=== PATIENT | female | born 1960 | race Caucasian/White ===

== ENCOUNTER → 2017-07-05 | Outpatient (CLI) | payer BC ==
--- NOTE | 2017-07-05 14:06 | MAMMOGRAPHY REPORT ---
BILATERAL DIGITAL SCREENING MAMMOGRAM TOMOSYNTHESIS WITH CAD: 07/05/2017 CLINICAL HISTORY: Routine screening. TECHNIQUE: Breast tomosynthesis in addition to standard 2D mammography was performed. Current study was also evaluated with a Computer Aided Detection (CAD) system. COMPARISON: Comparison is made to exams dated: 07/11/2016 mammogram, 07/04/2016 mammogram, 07/01/2015 m ammogram, 06/30/2014 mammogram, 06/27/2013 mammogram, and 06/26/2012 mammogram - [facility] ter. BREAST COMPOSITION: The tissue of both breasts is heterogeneously dense, which may obscure small mas ses. FINDINGS: No suspicious masses, calcifications, or areas of architectural distortion are noted in ei ther breast. There has been no significant interval change compared to prior exams. Scattered bilater al benign-appearing calcifications are not significantly changed. IMPRESSION: ACR BI-RADS CATEGORY 2: BENIGN There is no mammographic evidence of malignancy. A 1 year screening mammogram is recommended. The pa tient will receive written notification of the results. Approximately 10% of breast cancers are not detected with mammography. A negative mammographic report should not delay biopsy if a clinically suggestive mass is present. Alexus Flor M.D. /:07/05/2017 12:04:31 Set Up Mold Technician: Marc VELASCO)(M), [facility] letter sent: Normal 1/2 BI-RADS Code: ACR BI-RADS Category 2: Benign
== END | disposition home or self-care (01) ==
LOC: C.MAMM 08:35
PROVIDERS: ATTEND Family Medicine
DX: Z12.31 Encounter for screening mammogram for malignant neoplasm of breast (principal)

== ENCOUNTER → 2018-07-08 | Outpatient (CLI) | payer BC ==
--- NOTE | 2018-07-09 06:57 | MAMMOGRAPHY REPORT ---
BILATERAL DIGITAL SCREENING MAMMOGRAM TOMOSYNTHESIS WITH CAD: 07/08/2018 CLINICAL HISTORY: Routine screening. Patient has no complaints. TECHNIQUE: The study was acquired using full field digital technology and interpreted from soft copy. Breast tomosynthesis in addition to standard 2D mammography was performed. Current study was also ev aluated with a Computer Aided Detection (CAD) system. COMPARISON: Comparison is made to exams dated: 07/05/2017 mammogram, 07/11/2016 mammogram, 07/04/2016 m ammogram, 07/01/2015 mammogram, 06/30/2014 mammogram, and 06/27/2013 mammogram - [facility] nter. BREAST COMPOSITION: The tissue of both breasts is heterogeneously dense, which may obscure small mass es. FINDINGS: There are stable groupings of punctate and round calcifications in both breasts. The gland ular pattern is similar to prior mammograms. No suspicious mass, architectural distortion or cluster of microcalcifications is seen. IMPRESSION: ACR BI-RADS CATEGORY 1: NEGATIVE There is no mammographic evidence of malignancy. A 1 year screening mammogram is recommended.( 019) The patient will receive written notification of the results. Some breast cancers are not detected with mammography. A negative mammographic report should not ayesha y biopsy if a clinically suggestive mass is present. Farzaneh Starks M.D. ay/:07/08/2018 14:44:20 Loan Inspector: RT Minor(Arvind)(M), [facility] letter sent: Normal 1/2 BI-RADS Code: ACR BI-RADS Category 1: Negative
== END | disposition home or self-care (01) ==
LOC: C.MAMM 10:47
PROVIDERS: ATTEND Family Medicine
DX: Z12.31 Encounter for screening mammogram for malignant neoplasm of breast (principal)

== ENCOUNTER 2021-06-02 05:57 | Observation (INO) ==
[2021-06-02 06:42] LABS: Basophils # (auto) 0.06 K/uL (0-0.2); Basophils % (auto) 0.8 %; Eosinophils # (auto) 0.18 K/uL (0-0.5); Eosinophils % (auto) 2.3 %; Hemoglobin 16.2 g/dL (12.0-16.0); Immature Granulocytes # (auto) 0.02 K/uL (0.00-0.02); Immature Granulocytes % (auto) 0.3 %; Lymphocytes # (auto) 2.71 K/uL (1.2-3.4); Lymphocytes % (auto) 33.9 %; Mean Corpuscular Hemoglobin 30.5 pg (25-34); Mean Corpuscular Hgb Conc 34.5 g/dL (32-36); Mean Corpuscular Volume 88.3 fL (80-100); Mean Platelet Volume 9.8 fL (7.4-10.4); Monocytes # (auto) 0.78 K/uL (0.11-0.59); Monocytes % (auto) 9.8 %; Neutrophils # (auto) 4.25 K/uL (1.4-6.5); Neutrophils % (auto) 52.9 %; Platelet Count 320 K/uL (130-400); RDW Coefficient of Variation 13.4 % (11.5-14.5); RDW Standard Deviation 43.1 fL (36.4-46.3); Red Blood Count 5.32 M/uL (4.2-5.4)
--- NOTE | 2021-06-02 07:00 | Emergency Department Note ---
History of Present Illness General Chief Complaint: Cardiac Assessment Stated Complaint: HEART FLUTTERING Time Seen by Provider: 06/02/21 06:37 History of Present Illness Provider Complaint: chest pain Time: 03:00 Duration: constant Onset: during rest and awoke with symptoms Pain Location: left chest Pain Radiation: LUE Severity: moderate Maximum Pain Intensity: 5 Current Pain Intensity: 5 Quality: + heaviness (pressure) Relieved By: + nothing Exacerbated By: + nothing Context: + recent travel (travel to [place] in April); no recent illness, no recent surgery, no trauma/injury or no history of DVT/PE Associated symptoms: no nausea, no vomiting, no diaphoresis, no dyspnea, no sense of impending doom, no syncope, no palpitations, no fever, no cough or no leg swelling Home Medications Medication Instructions Recorded Confirmed Type Claritin 10 mg PO DAILY 06/02/21 06/02/21 History lisinopril 10 mg tablet 10 mg PO DAILY 06/02/21 06/02/21 History Past Med/Surg History Medical History (Updated 06/02/21 @ 09:37 by Glynn Batres) HTN (hypertension) Surgical History (Updated 06/02/21 @ 09:06 by Sita Issa PA-C) Hx of cholecystectomy Family History (Updated 06/02/21 @ 09:06 by Sita Issa PA-C) Mother Myocardial infarction Other Cancer Diabetes Social History Smoking Status: Never smoker Preferred Language: Croatian Feels Safe at Home: Yes Review of Systems A total of 10 systems reviewed and were otherwise negative Physical Exam Vital Signs Vital Signs - 24 hr 06/02/21 06:03 06/02/21 06:11 06/02/21 06:13 Temperature 36.5 C 37.1 C Temperature Source Temporal Artery Scan Oral Pulse Rate 91 H 84 Pulse Rate [Apical] 82 Pulse Rate from SpO2 Sensor Pulse Rhythm [Apical] Regular Pulse Strength [Apical] Normal Respiratory Rate 18 16 Respiratory Effort / Characteristics Non-Labored Spontaneous Respiratory Depth Normal Normal Respiratory Pattern Regular Blood Pressure 170/103 H Blood Pressure [Right Arm] 163/100 H Blood Pressure Mean 125 Blood Pressure Mean [Right Arm] 121 Pulse Oximetry 99 98 Oxygen Delivery Method Room Air Room Air Room Air Sepsis Recent Fever Within 48 Hours No Sepsis New/Unexplained Change in Mental Status N/A Sepsis Action Taken by Nursing No Action Required 06/02/21 07:00 06/02/21 07:18 06/02/21 07:30 Temperature Temperature Source Pulse Rate 72 71 72 Pulse Rate [Apical] Pulse Rate from SpO2 Sensor 72 Pulse Rhythm [Apical] Pulse Strength [Apical] Respiratory Rate 16 16 16 Respiratory Effort / Characteristics Respiratory Depth Respiratory Pattern Blood Pressure 163/100 H 131/95 123/77 Blood Pressure [Right Arm] Blood Pressure Mean 121 107 92 Blood Pressure Mean [Right Arm] Pulse Oximetry 95 95 96 Oxygen Delivery Method Room Air Room Air Sepsis Recent Fever Within 48 Hours Sepsis New/Unexplained Change in Mental Status Sepsis Action Taken by Nursing 06/02/21 08:00 Temperature Temperature Source Pulse Rate 72 Pulse Rate [Apical] Pulse Rate from SpO2 Sensor Pulse Rhythm [Apical] Pulse Strength [Apical] Respiratory Rate 16 Respiratory Effort / Characteristics Respiratory Depth Respiratory Pattern Blood Pressure 167/85 H Blood Pressure [Right Arm] Blood Pressure Mean 112 Blood Pressure Mean [Right Arm] Pulse Oximetry 96 Oxygen Delivery Method Room Air Sepsis Recent Fever Within 48 Hours Sepsis New/Unexplained Change in Mental Status Sepsis Action Taken by Nursing Physical Exam GENERAL: She is oriented to person, place, and time. She appears well-developed and well-nourished. She does not appear distressed. HENT: Exam performed. -Head: Normocephalic and atraumatic. -Right Ear: External ear normal. No mastoid tenderness. -Left Ear: External ear normal. No mastoid tenderness. -Mouth/Throat: The oropharynx is clear and moist. No trismus in the jaw. No dental abscesses or uvula swelling. No oropharyngeal exudate or tonsillar abscesses. EYES: Conjunctivae and EOM are normal. Pupils are equal, round, and reactive to light. Right eye exhibits no discharge. Left eye exhibits no discharge. No scleral icterus. NECK: Normal range of motion. Neck supple. No JVD present. No spinous process tenderness present. No carotid bruit present. No rigidity. No tracheal deviation and normal range of motion present. No Brudzinski's sign and no Kernig's sign noted. CV: Normal rate, regular rhythm, normal heart sounds and intact distal pulses. There is no peripheral edema. Palpable radial pulses bue. PULM/CHEST: Effort normal and breath sounds normal. No respiratory distress. No stridor. She has no wheezes. She has no rales. -Chest Wall: She exhibits no tenderness. ABD: The abdomen is soft. Bowel sounds are normal. She has no distension. No mass is present. There is no tenderness. There is no rebound, no guarding, no Cuadra's sign and no tenderness at McBurney's point. Rovsig negative MUSC/SKEL: Normal range of motion. There is no peripheral edema, tenderness or deformity. LYMPH: No cervical adenopathy. NEURO: She is alert and oriented to person, place, and time. She has normal strength. No cranial nerve deficit or sensory deficit. Coordination and gait normal. GCS eye subscore is 4. GCS verbal subscore is 5. GCS motor subscore is 6. Cerebellar tests wnl. SKIN: Skin is warm and dry. She is not diaphoretic. PSYCH: She has a normal mood and affect. Behavior is normal. Judgment and thought content normal. Course Course 0637: The patient was evaluated in room A10. A complete history and physical exam was performed Cardiac monitoring: An order was placed for continuous cardiac monitoring. The monitor shows a rate of 80 with sinus rhythm 0817: Vital signs stable. Labs and imaging within normal limits. Patient was offered inpatient observation versus delta troponin and follow-up PCP if n egative, patient and family elected for inpatient observation given the strong family history of PR. Discussed the case with Dr. Kyle hospitalist who agreed to evaluate the patient. Administered Medications Discontinued Medications Aspirin (Aspirin Chew 324 Mg) 324 mg PO NOW STA Stop: 06/02/21 08:04 Last Admin: 06/02/21 08:16 Dose: 324 mg Documented by: [id number] Medical Decision Making Laboratory Data Result diagrams: 06/02/21 06:15 06/02/21 06:15 Labs: Lab Results 06/02/21 06/02/21 06/02/21 Range/Units 06:15 06:15 07:14 WBC 8.00 (4.8-10.8) K/uL RBC 5.32 (4.2-5.4) M/uL Hgb 16.2 H (12.0-16.0) g/dL Hct 47.0 (37-47) % MCV 88.3 (80-100) fL MCH 30.5 (25-34) pg MCHC 34.5 (32-36) g/dL RDW Std Deviation 43.1 (36.4-46.3) fL RDW Coeff of Shree 13.4 (11.5-14.5) % Plt Count 320 (130-400) K/uL MPV 9.8 (7.4-10.4) fL Immature Gran % (Auto) 0.3 % Neut % (Auto) 52.9 % Lymph % (Auto) 33.9 % Perry % (Auto) 9.8 % Eos % (Auto) 2.3 % Baso % (Auto) 0.8 % Neut # (Auto) 4.25 (1.4-6.5) K/uL Lymph # (Auto) 2.71 (1.2-3.4) K/uL Perry # (Auto) 0.78 H (0.11-0.59) K/uL Eos # (Auto) 0.18 (0-0.5) K/uL Baso # (Auto) 0.06 (0-0.2) K/uL Immature Gran # (Auto) 0.02 (0.00-0.02) K/uL PT 9.4 (9.0-12.0) Seconds INR 0.9 (0.9-1.1) APTT 28.0 (21.0-31.0) Seconds PTT Ratio 1.1 D-Dimer < 190 (0-500) ug/L FEU Sodium 139 (136-145) mmol/L Potassium 3.7 (3.5-5.1) mmol/L Chloride 108 H (98-107) mmol/L Carbon Dioxide 27 (21-32) mmol/L Anion Gap 5.0 (3-11) BUN 13 (7-18) mg/dl Creatinine 0.80 (0.6-1.2) mg/dl Est Cr Clr Drug Dosing 78.0 ml/min Est GFR ( Amer) 92.2 ml/min Est GFR (Non-Af Amer) 79.6 ml/min BUN/Creatinine Ratio 16.5 (10-20) Glucose 100 H (70-99) mg/dl Calcium 9.6 (8.5-10.1) mg/dl Magnesium 2.2 (1.8-2.4) mg/dl Troponin I < 0.015 (0-0.045) ng/ml TSH 8.690 H (0.300-4.500) uIu/ml Urine Color Urine Appearance (Clear) Urine pH (4.5-7.5) Ur Specific Parker (1.000-1.030) Urine Protein (Negative) Urine Glucose (UA) (Negative) Urine Ketones (Negative) Urine Blood (Negative) Urine Nitrite (Negative) Urine Bilirubin (Negative) Urine Urobilinogen (Negative) Ur Leukocyte Esterase (Negative) Urine WBC (Auto) (0-5) /hpf Urine RBC (Auto) (0-4) /hpf U Hyaline Cast (Auto) (0-5) /lpf U Epithel Cells (Auto) (0-5) /lpf Urine Bacteria (Auto) (Negative) COVID-19 Eval Order 06/02/21 06/02/21 Range/Units 07:18 08:15 WBC (4.8-10.8) K/uL RBC (4.2-5.4) M/uL Hgb (12.0-16.0) g/dL Hct (37-47) % MCV (80-100) fL MCH (25-34) pg MCHC (32-36) g/dL RDW Std Deviation (36.4-46.3) fL RDW Coeff of Shree (11.5-14.5) % Plt Count (130-400) K/uL MPV (7.4-10.4) fL Immature Gran % (Auto) % Neut % (Auto) % Lymph % (Auto) % Perry % (Auto) % Eos % (Auto) % Baso % (Auto) % Neut # (Auto) (1.4-6.5) K/uL Lymph # (Auto) (1.2-3.4) K/uL Perry # (Auto) (0.11-0.59) K/uL Eos # (Auto) (0-0.5) K/uL Baso # (Auto) (0-0.2) K/uL Immature Gran # (Auto) (0.00-0.02) K/uL PT (9.0-12.0) Seconds INR (0.9-1.1) APTT (21.0-31.0) Seconds PTT Ratio D-Dimer (0-500) ug/L FEU Sodium (136-145) mmol/L Potassium (3.5-5.1) mmol/L Chloride (98-107) mmol/L Carbon Dioxide (21-32) mmol/L Anion Gap (3-11) BUN (7-18) mg/dl Creatinine (0.6-1.2) mg/dl Est Cr Clr Drug Dosing ml/min Est GFR ( Amer) ml/min Est GFR (Non-Af Amer) ml/min BUN/Creatinine Ratio (10-20) Glucose (70-99) mg/dl Calcium (8.5-10.1) mg/dl Magnesium (1.8-2.4) mg/dl Troponin I (0-0.045) ng/ml TSH (0.300-4.500) uIu/ml Urine Color Yellow Urine Appearance Clear (Clear) Urine pH 5.0 (4.5-7.5) Ur Specific Parker 1.010 (1.000-1.030) Urine Protein Negative (Negative) Urine Glucose (UA) Negative (Negative) Urine Ketones Negative (Negative) Urine Blood Negative (Negative) Urine Nitrite Negative (Negative) Urine Bilirubin Negative (Negative) Urine Urobilinogen Negative (Negative) Ur Leukocyte Esterase Trace H (Negative) Urine WBC (Auto) 1-5 (0-5) /hpf Urine RBC (Auto) 0-4 (0-4) /hpf U Hyaline Cast (Auto) 0 (0-5) /lpf U Epithel Cells (Auto) 10-20 H (0-5) /lpf Urine Bacteria (Auto) Negative (Negative) COVID-19 Eval Order Covid19 at [facility] Imaging Data Chest x-ray: Radiologist's impression: Chest X-Ray 06/02/21 06:11 XR chest 1V portable CLINICAL HISTORY: Atypical chest pain. COMPARISON STUDY: No previous studies for comparison. FINDINGS: Lung volumes are normal. Lungs are clear. There is no pneumothorax or pleural effusion. Cardiac size is normal. Mediastinal contours are normal. There is no evidence for pulmonary edema. IMPRESSION: No acute cardiopulmonary findings. ACT 112: Negative or not required by law. Electronically signed by: Derik Ray M.D. 06/02/2021 7:21 AM ECG Data Indication: chest pain Rate (beats per minute): 81 Rhythm: normal sinus Findings: no ST depression, no ST elevation or no prolonged QT MDM Narrative Vital signs stable. Labs and imaging within normal limits. Patient was offered inpatient observation versus delta troponin and follow-up PCP if negative, patient and family elected for inpatient observation given the strong family history of PR. Discussed the case with Dr. Kyle hospitalist who agreed to evaluate the patient. Impression & Plan Chest pain Discharge Plan Visit Data Chief Complaint: Cardiac Assessment Stated Complaint: HEART FLUTTERING ED Provider: Glynn Batres Discharge Problem: Chest pain Patient Disposition: Being Evaluated by Hospitalist Forms Stand Alone Forms: [employer] Prescriptions Prescriptions: No Action lisinopril 10 mg tablet 10 mg PO DAILY RF: 0 Claritin 10 mg PO DAILY RF: 0 Referrals Referrals: PCP,NO [Primary Care Provider] - Discharge Problem: Chest pain Qualifiers: Chest pain type: unspecified Qualified Code(s): R07.9 - Chest pain, unspecified
[2021-06-02 07:03] LABS: BUN Creatinine Ratio 16.5 (10-20); Blood Urea Nitrogen 13 mg/dl (7-18); Calcium 9.6 mg/dl (8.5-10.1); Carbon Dioxide 27 mmol/L (21-32); Chloride 108 mmol/L (98-107); Est GFR (African American) 92.2 ml/min; Est GFR (Non-African American) 79.6 ml/min; Glucose 100 mg/dl (70-99); Magnesium 2.2 mg/dl (1.8-2.4); Potassium 3.7 mmol/L (3.5-5.1); Sodium 139 mmol/L (136-145)
[2021-06-02 07:14] LABS: Troponin I < 0.015 ng/ml (0-0.045)
--- NOTE | 2021-06-02 07:22 | XRay Report ---
XR chest 1V portable CLINICAL HISTORY: Atypical chest pain. COMPARISON STUDY: No previous studies for comparison. FINDINGS: Lung volumes are normal. Lungs are clear. There is no pneumothorax or pleural effusion. Car diac size is normal. Mediastinal contours are normal. There is no evidence for pulmonary edema. IMPRESSION: No acute cardiopulmonary findings. ACT 112: Negative or not required by law. Electronically signed by: Derik Ray M.D. 06/02/2021 7:21 AM
[2021-06-02 07:32] LABS: Appearance Urine Clear (Clear); Bacteria Urine Automated Negative (Negative); Bilirubin Urine Negative (Negative); Blood Urine Negative (Negative); Cast Urine Automated 0 /lpf (0-5); Color Urine Yellow; Glucose Urine UA Negative (Negative); Ketones Urine Negative (Negative); Leukocyte Esterase Urine Trace (Negative); Nitrite Urine Negative (Negative); Protein Urine Negative (Negative); RBC Urine Automated 0-4 /hpf (0-4); Urobilinogen Urine Negative (Negative)
[2021-06-02 07:46] LABS: D Dimer < 190 ug/L FEU (0-500); INR 0.9 (0.9-1.1); Partial Thromboplastin Ratio 1.1; Prothrombin Time 9.4 Seconds (9.0-12.0)
[2021-06-02] MEDS ORDERED: ASPIRIN CHEW 324 MG PO STA (08:03)
--- NOTE | 2021-06-02 08:48 | History & Physical Report ---
Date of Service June 02, 2021 Assessment & Plan (1) Chest pain: Plan: This is a 61-year-old female with PMH of hypertension who presents with chest pain since early this morning. R/o ACS; risk factors include HTN, + family history of CAD (mom with h/o AL at age 46) Initial troponin negative EKG with NSR CXR with no acute cardiopulmonary findings Trend serial cardiac enzymes Check 2D echo NTG PRN Repeat EKG in am Fasting lipids and a1c in AM Routine cardiology consult, NPO @ [place] in case of stress test in AM (2) HTN (hypertension): Plan: Normotensive. Continue lisinopril (3) Abnormal TSH: Plan: TSH elevated at 8.690. Repeat TSH and free T4 in AM DVT Ppx: SQ heparin Code status: FULL PCP: Ortiz Dispo: Observation telemetry Patient seen in collaboration with Dr. Hope. Please see addendum. History of Present Illness Chief Complaint: Chest pain Primary Care Provider: NO PCP This is a 61-year-old female with PMH of hypertension who presents with chest pain since early this morning. Was in normal state of health yesterday but woke up this morning at 0300 with left-sided "heat sensation" in left side of chest with radiation to left shoulder. Denies any radiation to jaw, associated shortness of breath, nausea or vomiting. Denies any previous history of chest pain or known coronary disease, diabetes or hyperlipidemia. Only medications are lisinopril and Claritin. Pain has improved since arrival to ED. Denies history of smoking. Endorses history of AL in mom at the age of 46. Denies any fever, chills, lightheadedness, visual changes, wheezing, shortness of breath, nausea, vomiting, abdominal pain, dysuria, diarrhea or constipation. Home Medications Medication Instructions Recorded Confirmed Type Claritin 10 mg PO DAILY 06/02/21 06/02/21 History lisinopril 10 mg tablet 10 mg PO DAILY 06/02/21 06/02/21 History Past Med/Surg History Medical History HTN (hypertension) Surgical History (Updated 06/02/21 @ 09:06 by Sita Issa PA-C) Hx of cholecystectomy Family History (Updated 06/02/21 @ 09:06 by Sita Issa PA-C) Mother Myocardial infarction Other Cancer Diabetes Social History Smoking Status: Never smoker Preferred Language: [place] Citizen Feels Safe at Home: Yes Review of Systems Review of Systems: At least ten systems reviewed and negative except as noted in the HPI. Physical Exam Physical Exam: General Appearance: WD/WN, vitals as above, NAD, sitting up in bed, pleasant, conversing easily Head: normocephalic, atraumatic Eyes: normal inspection, PERRL, conjunctivae normal, anicteric sclerae ENT: external ear and nose normal, oropharynx normal Neck: normal visual inspection, trachea midline, no thyromegaly Respiratory: normal respiratory effort, lungs clear to auscultation, no wheeze, rales, rhonchi. No accessory muscle use Cardiovascular: regular rate, rhythm, no murmur, normal peripheral pulses, no BLE edema. Vessels: no JVD Chest: normal inspection of chest, pain not reproducible Abdomen/GI: normal bowel sounds, soft, nontender, no hepatosplenomegaly Extremities/Musculoskeletal: no cyanosis or clubbing, extremities motor strength 5/5 Neurologic: PERRL, EOMI, accommodation nl, no face palsy, no dysarthria, CN's II-XI intact bilaterally and moves all extremities Psychiatric: A+Ox3, euthymic affect Skin: no rashes, normal color, warm/dry Results & Data Results & Data ([facility]) Vital Signs (Past 12 Hours) Vital Signs Temp Pulse Pulse Resp BP BP Pulse Ox 06/02/21 08:00 72 16 167/85 H 96 06/02/21 07:30 72 16 123/77 96 06/02/21 07:18 71 16 131/95 95 06/02/21 07:00 72 16 163/100 H 95 06/02/21 06:11 37.1 C 84 82 16 163/100 H 98 06/02/21 06:03 36.5 C 91 H 18 170/103 H 99 Laboratory Results Short CBC 06/02/21 Range/Units 06:15 WBC 8.00 (4.8-10.8) K/uL Hgb 16.2 H (12.0-16.0) g/dL Hct 47.0 (37-47) % Plt Count 320 (130-400) K/uL BMP 06/02/21 06:15 Sodium 139 Potassium 3.7 Chloride 108 H Carbon Dioxide 27 BUN 13 Creatinine 0.80 Glucose 100 H Calcium 9.6 Cardiac Enzymes 06/02/21 Range/Units 06:15 Troponin I < 0.015 (0-0.045) ng/ml Urine 06/02/21 Range/Units 07:18 Urine Color Yellow Urine Appearance Clear (Clear) Urine pH 5.0 (4.5-7.5) Ur Specific [place] 1.010 (1.000-1.030) Urine Protein Negative (Negative) Urine Glucose (UA) Negative (Negative) Diagnostic Findings Chest X-Ray 06/02/21 06:11 XR chest 1V portable CLINICAL HISTORY: Atypical chest pain. COMPARISON STUDY: No previous studies for comparison. FINDINGS: Lung volumes are normal. Lungs are clear. There is no pneumothorax or pleural effusion. Cardiac size is normal. Mediastinal contours are normal. There is no evidence for pulmonary edema. IMPRESSION: No acute cardiopulmonary findings. ACT 112: Negative or not required by law. Electronically signed by: Derik Ray M.D. 06/02/2021 7:21 AM ECG Rhythm: normal sinus Change: no significant change Code Status & VTE Plan VTE Prophylaxis Plan VTE Prophylaxis will be ordered: Yes Supervising Physician Co-Signing Physician Notes Patient is a 61-year-old female with history of hypertension and no other significant medical problems presents with history of sudden onset of left-sided chest pain radiating to left shoulder this morning. Currently while in ED, chest pain much improved. She denies any associated shortness of breath, nausea, vomiting, dizziness. Also denies any trauma. Please review HPI for complete details of presentation. Initial troponin negative. EKG showed no signs of acute ischemia. Echo pending. On exam patient is moderately built and nourished, no apparent distress, normocephalic atraumatic, EOMI, lungs are clear to auscultation, normal breath sounds, S1-S2, no murmur, no pedal edema, abdomen soft, nontender, normal bowel sounds, alert, awake, oriented, grossly no focal deficits. Patient is admitted for management of chest pain rule out ACS. Will trend cardiac enzymes, follow-up on echo. Will check lipid panel. Consulted cardiology for possible stress test. Noted abnormal TSH. Will repeat TSH, free T4 in the morning. Will monitor on telemetry. Keep her n.p.o. after midnight. I personally reviewed the record. Patient is interviewed and examined at bedside. Patient's care is coordinated with Sita Issa PA-C. Please refer to the documentation above for details of patient's presentation and for discussion of other issues. (1) Chest pain Chest pain type: unspecified Qualified Code(s): R07.9 - Chest pain, unspecified
[2021-06-02] MEDS ORDERED: ONDANSETRON INJ 2 MG/ML 2 ML VIAL IV PRN (16:32)
[2021-06-02] MEDS ORDERED: POLYETHYLENE (MIRALAX) 17 GM PACK PO PRN (16:32)
[2021-06-02] MEDS ORDERED: NITROGLYCERIN SL 0.4 MG/TAB TAB SL PRN (16:32)
[2021-06-02] MEDS ORDERED: ACETAMINOPHEN 325 MG TAB PO PRN (16:32)
--- NOTE | 2021-06-02 16:46 | Electrocardiogram Report ---
Test Reason : Blood Pressure : / mmHG Vent. Rate : 081 BPM Atrial Rate : 081 BPM P-R Int : 142 ms QRS Dur : 080 ms QT Int : 372 ms P-R-T Axes : 056 012 056 degrees QTc Int : 432 ms Normal sinus rhythm Normal ECG No previous ECGs available Confirmed by Tariq Anderson ([id number]) on 06/02/2021 4:46:25 PM Referred By: REFERRED SELF Confirmed By:Cody Anderson
[2021-06-02] MEDS: ASPIRIN 81 MG ECTAB PO SCH (17:31)
[2021-06-02] MEDS: lisinopril 10 MG TAB PO SCH (17:31)
[2021-06-02] MEDS: LORATADINE 10 MG TAB PO SCH (17:31)
[2021-06-02] MEDS: HEPARIN SOD 5,000 UNIT/0.5 ML VIAL SQ SCH ×2 (17:32→21:08)
[2021-06-02] MEDS ORDERED: NSS + 20MEQ KCL 20 MEQ/1,000 ML BAG IV ONE (21:00)
[2021-06-03] MEDS: HEPARIN SOD 5,000 UNIT/0.5 ML VIAL SQ SCH (06:06)
[2021-06-03 06:52] LABS: Hematocrit (blood only) 43.5 % (37-47); Hemoglobin 14.3 g/dL (12.0-16.0); Mean Corpuscular Hemoglobin 29.9 pg (25-34); Mean Corpuscular Hgb Conc 32.9 g/dL (32-36); Mean Platelet Volume 9.2 fL (7.4-10.4); Platelet Count 309 K/uL (130-400); RDW Coefficient of Variation 13.6 % (11.5-14.5); RDW Standard Deviation 45.4 fL (36.4-46.3); Red Blood Count 4.78 M/uL (4.2-5.4); White Blood Count 6.65 K/uL (4.8-10.8)
[2021-06-03 07:34] LABS: BUN Creatinine Ratio 22.3 (10-20); Calcium 8.7 mg/dl (8.5-10.1); Creatinine Clr Calc Pharmacy 87.6 ml/min; Est GFR (African American) 106.5 ml/min; Est GFR (Non-African American) 91.9 ml/min; Magnesium 2.4 mg/dl (1.8-2.4); Potassium 4.4 mmol/L (3.5-5.1)
[2021-06-03 07:52] LABS: T4 Free Thyroxine 0.99 ng/dl (0.8-1.6); Thyroid Stimulating Hormone 4.73 uIu/ml (0.300-4.500)
[2021-06-03] MEDS: ASPIRIN 81 MG ECTAB PO SCH (09:40)
[2021-06-03] MEDS: LORATADINE 10 MG TAB PO SCH (09:41)
[2021-06-03] MEDS: lisinopril 10 MG TAB PO SCH (09:41)
--- NOTE | 2021-06-03 10:07 | Cardiology Consultation ---
Date of Consultation June 03, 2021 Assessment & Plan (1) Chest pain: (2) HTN (hypertension): 61-year-old female with hypertension, family history of CAD in her mother as well as maternal grandmother. Admitted with atypical chest discomfort. EKGs are without acute change. Troponon negative x 3. Resting echocardiography demonstrates normal systolic function without regional wall motion abnormality. Review of telemetry reveals sinus in the 60's and 70's with occasional premature atrial contractions; no significant arrhythmias observed. Proceed with stress echocardiography. Supervising Physician Co-Signing Physician Notes I have seen and examined the patient. I have reviewed the medical record and discussed the case with Mr. Morelos. The patient had a negative exercise stress echocardiogram this morning. I believe that she may be discharged to outpatient follow-up with her primary care physician. History of Present Illness Reason for Consultation: Chest pain Requesting Physician: Herminia Attending Physician: Herminia History of Present Illness Mrs. Debbie Salinas is a very pleasant 61-year-old female who was admitted to [facility] through the emergency room on , June 02, 2021, evaluation of chest discomfort. The patient notes awakening around 3 AM with pressure in the left upper chest and left shoulder burning after falling asleep intermittently on the couch. She notes a history of a pinched nerve though symptoms were totally different. After a few hours of waxing and waning discomfort she presented to the emergency room with the pain noted to have improved prior to evaluation in the ER. EKG was without acute change. Troponin negative on presentation as well as serially. Chest x-ray showed no acute process. Resting echocardiography without wall motion abnormality, preserved LV systolic function. Patient notes no prior cardiac history other than a history of heart murmur as a child. No history of AK, CAD, CHF, arrhythmia, rheumatic fever, or scarlet fever. Past Medical and Surgical History: Hypertension. Arthritis. Cholecystectomy. Colonoscopy with cecum lipoma. Family History: Mother suffered a small AK at the age of 46. She is alive at the age of 81 and doing well. Her maternal grandmother had coronary artery disease at the onset of 80. She is currently alive and well at the age of 101, suffering a CVA at the age of 100. No cardiac history in her father. She has 1 of 5 siblings, without cardiac history Social History: Non-smoker. Social alcohol. No illegal drug use. . 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 Originally from [facility]. Complete Review of Systems: Constitutional: No change in weight. No fevers, sweats, or chills. HEENT: Glasses. Spot followed by ophthalmology, not macular degeneration like her father. No amaurosis fugax. Pulmonary: No history of sleep apnea, pulmonary embolism, COPD or asthma. Cardiac: See above. GI/Abd: See above. No reported dysphagia. Denies liver or kidney problems. No history of pancreatic problems. Vascular: No history of claudication, AAA, or carotid artery disease. Hematologic: No coagulation disorder, anemia, or abnormal bleeding. Musculoskeletal: Arthritis. Neurologic: No history of TIA, CVA, or seizure. Endocrine: Abnormal TSH noted this admission, without prior thyroid issues. No history of diabetes mellitus. Allergies Allergy/AdvReac Type Severity Reaction Status Date / Time No Known Allergies Allergy Verified 06/02/21 16:38 Home Medications Medication Instructions Recorded Confirmed Type Claritin 10 mg PO DAILY 06/02/21 06/02/21 History lisinopril 10 mg tablet 10 mg PO DAILY 06/02/21 06/02/21 History Patient History Medical History HTN (hypertension) Surgical History Hx of cholecystectomy Family History Mother Myocardial infarction Other Cancer Diabetes Social History Smoking Status: Never smoker Hx Alcohol Use: Yes Hx Substance Use: No Preferred Language: Greek Communication Ability: Effective Breast Surgeon Required: No Beliefs That Will Affect Care: None Current Living Situation: Spouse Other Information That Helps Us Care for You: No Feels Safe at Home: Yes Safety Concerns: Feels Safe At This Time Assistive Devices: None Review of Systems Review of Systems: Complete Review of Systems is as stated above, negative, or noncontributory Physical Exam Physical Exam: General: A&Ox3. NAD. HENT: Normocephalic. Atraumatic. Eyes: PER. Conjunctiva pink, sclera clear. Neck: No carotid bruits. No JVD. Heart: RRR. Soft systolic murmur at the LLSB. No rub. No gallop.Lungs: Clear to auscultation. Abdomen: +BS. Extremities: No clubbing, cyanosis, or edema. Limited neurological examination is without focal deficits. Pulses: Posterior tibial=1/4. Results & Data ([facility]) Vital Signs (Past 12 Hours) Vital Signs Temp Pulse Pulse Resp BP Pulse Ox 06/03/21 07:51 36.9 C 64 19 134/85 94 06/03/21 07:26 63 06/03/21 04:00 36.9 C 65 18 118/78 96 06/03/21 00:14 37.1 C 68 18 125/81 95 06/02/21 23:31 74 Laboratory Results Laboratory Results - last 24 hr 06/02/21 06/03/21 06/03/21 16:59 00:11 06:34 WBC 6.65 RBC 4.78 Hgb 14.3 Hct 43.5 MCV 91.0 MCH 29.9 MCHC 32.9 RDW Std Deviation 45.4 RDW Coeff of Shree 13.6 Plt Count 309 MPV 9.2 Sodium Potassium Chloride Carbon Dioxide Anion Gap BUN Creatinine Est Cr Clr Drug Dosing Est GFR ( Amer) Est GFR (Non-Af Amer) BUN/Creatinine Ratio Glucose Calcium Magnesium Troponin I < 0.015 < 0.015 Triglycerides Cholesterol LDL Cholesterol, Calc VLDL Cholesterol, Calc HDL Cholesterol Cholesterol/HDL Ratio TSH Free T4 Hepatitis C Ab Screen 06/03/21 06/03/21 06:34 06:34 WBC RBC Hgb Hct MCV MCH MCHC RDW Std Deviation RDW Coeff of Shree Plt Count MPV Sodium 138 Potassium 4.4 D Chloride 109 H Carbon Dioxide 28 Anion Gap 1.0 L BUN 16 Creatinine 0.71 Est Cr Clr Drug Dosing 87.6 Est GFR ( Amer) 106.5 Est GFR (Non-Af Amer) 91.9 BUN/Creatinine Ratio 22.3 H Glucose 97 Calcium 8.7 Magnesium 2.4 Troponin I Triglycerides 134 Cholesterol 234 H LDL Cholesterol, Calc 147 VLDL Cholesterol, Calc 27 HDL Cholesterol 60 Cholesterol/HDL Ratio 4 TSH 4.730 H Free T4 0.99 Hepatitis C Ab Screen Neg Diagnostic Findings June 02, 2021 TTE Interpretation Summary ([facility], Dr. Dougherty): No significant valvular pathology. Normal LV size, function, and wall motion, EF 55-60%. Normal RV function. Normal LA size. Normal RA size. (1) Chest pain Chest pain type: unspecified Qualified Code(s): R07.9 - Chest pain, unspecified
--- NOTE | 2021-06-03 13:19 | Electrocardiogram Report ---
Test Reason : Blood Pressure : / mmHG Vent. Rate : 067 BPM Atrial Rate : 067 BPM P-R Int : 154 ms QRS Dur : 082 ms QT Int : 426 ms P-R-T Axes : 050 021 052 degrees QTc Int : 450 ms Normal sinus rhythm Normal ECG When compared with ECG of 02-JUN-2021 06:08, No significant change was found Confirmed by Tariq Anderson ([id number]) on 06/03/2021 1:19:10 PM Referred By: REFERRED SELF Confirmed By:Cody Anderson
--- NOTE | 2021-06-03 15:19 | Hospitalist Progress Note ---
Date of Service June 03, 2021 Assessment & Plan (1) Chest pain: Plan: Patient is a 61 yr female with H/O hypertension who presents with chest pain for 1 day duration Chest Pain R/O ACS Risk factors include HTN, + family history of CAD (mom with h/o CO at age 46) Troponin negative CXR with no acute cardiopulmonary findings ECHO: No left ventricle wall motion abnormality. EF of 55 to 60%. No significant valvular pathology Exercise Stress Test: Exercise echocardiographic examination is normal without resting left ventricular wall motion abnormalities or inducible ischemia. Appreciate cardiology input (2) HTN (hypertension): Plan: Normotensive. Continue lisinopril (3) Abnormal TSH: Plan: TSH elevated at 8.690. Repeat TSH and free T4 in AM Repeat TSH:4.7 Free T4:0.99 No further intervention needed DVT Px: SQ heparin Code status: FULL CODE PCP: Ortiz Admission and Anticipated Discharge Date Admission Date: June 02, 2021 Subjective Patient is seen and examined at bedside States doing well today Chest pain completely resolved Denies shortness of breath, dizziness, nausea, abdominal pain Offers no other complaints Had stress test earlier today Discussed with cardiology today Review of Systems Review of Systems: All systems reviewed & are unremarkable except as noted in Subjective Physical Exam Physical Exam: Physical Exam: Vitals signs as noted above General Appearance:Moderately built and nourished, no apparent distress Head: normocephalic, Atraumatic Eyes: normal inspection, EOMI Neck: supple, Trachea midline Respiratory/Chest: Normal breath sounds, CTA, No accessory muscle use Cardiovascular: S1, S2, No murmur Abdomen/GI:Soft, Non tender, Bowel sounds present Extremities/Musculoskeletal:normal inspection, no edema Neurologic/Psych:AAOX3, grossly no focal neurological deficits Skin: normal color, warm Results & Data Results & Data ([facility]) Vital Signs (Past 12 Hours) Vital Signs Temp Pulse Pulse Resp BP Pulse Ox 06/03/21 12:17 37.0 C 90 19 142/90 H 90 06/03/21 07:51 36.9 C 64 19 134/85 94 06/03/21 07:26 63 06/03/21 04:00 36.9 C 65 18 118/78 96 Laboratory Results Short CBC 06/03/21 Range/Units 06:34 WBC 6.65 (4.8-10.8) K/uL Hgb 14.3 (12.0-16.0) g/dL Hct 43.5 (37-47) % Plt Count 309 (130-400) K/uL BMP 06/03/21 06:34 Sodium 138 Potassium 4.4 D Chloride 109 H Carbon Dioxide 28 BUN 16 Creatinine 0.71 Glucose 97 Calcium 8.7 Cardiac Enzymes 06/02/21 06/03/21 Range/Units 16:59 00:11 Troponin I < 0.015 < 0.015 (0-0.045) ng/ml (1) Chest pain Chest pain type: unspecified Qualified Code(s): R07.9 - Chest pain, unspecified
--- NOTE | 2021-06-03 15:24 | Discharge Summary ---
Date of Service June 03, 2021 Admission HPI Per Admitting Provider This is a 61-year-old female with PMH of hypertension who presents with chest pain since early this morning. Was in normal state of health yesterday but woke up this morning at 0300 with left-sided "heat sensation" in left side of chest with radiation to left shoulder. Denies any radiation to jaw, associated shortness of breath, nausea or vomiting. Denies any previous history of chest pain or known coronary disease, diabetes or hyperlipidemia. Only medications are lisinopril and Claritin. Pain has improved since arrival to ED. Denies history of smoking. Endorses history of MO in mom at the age of 46. Denies any fever, chills, lightheadedness, visual changes, wheezing, shortness of breath, nausea, vomiting, abdominal pain, dysuria, diarrhea or constipation. Admission Exam Per Admitting Provider Physical Exam Physical Exam: General Appearance: WD/WN, vitals as above, NAD, sitting up in bed, pleasant, conversing easily Head: normocephalic, atraumatic Eyes: normal inspection, PERRL, conjunctivae normal, anicteric sclerae ENT: external ear and nose normal, oropharynx normal Neck: normal visual inspection, trachea midline, no thyromegaly Respiratory: normal respiratory effort, lungs clear to auscultation, no wheeze, rales, rhonchi. No accessory muscle use Cardiovascular: regular rate, rhythm, no murmur, normal peripheral pulses, no BLE edema. Vessels: no JVD Chest: normal inspection of chest, pain not reproducible Abdomen/GI: normal bowel sounds, soft, nontender, no hepatosplenomegaly Extremities/Musculoskeletal: no cyanosis or clubbing, extremities motor strength 5/5 Neurologic: PERRL, EOMI, accommodation nl, no face palsy, no dysarthria, CN's II-XI intact bilaterally and moves all extremities Psychiatric: A+Ox3, euthymic affect Skin: no rashes, normal color, warm/dry Principal Diagnosis Chest Pain Discharge Data Allergies Allergy/AdvReac Type Severity Reaction Status Date / Time No Known Allergies Allergy Verified 06/02/21 16:38 Consultations 06/02/21 08:17 ED Decision to Admit Stat 06/02/21 16:32 Consult Cardiology Routine Hospital Course (1) Chest pain: Patient is a 61 yr female with H/O hypertension who presents with chest pain for 1 day duration Chest Pain R/O ACS Risk factors include HTN, + family history of CAD (mom with h/o MO at age 46) Troponin negative CXR with no acute cardiopulmonary findings ECHO: No left ventricle wall motion abnormality. EF of 55 to 60%. No significant valvular pathology Exercise Stress Test: Exercise echocardiographic examination is normal without resting left ventricular wall motion abnormalities or inducible ischemia. Appreciate cardiology input (2) HTN (hypertension): Normotensive. Continue lisinopril (3) Abnormal TSH: TSH elevated at 8.690. Repeat TSH and free T4 in AM Repeat TSH:4.7 Free T4:0.99 No further intervention needed DVT Px: SQ heparin Code status: FULL CODE PCP: Ortiz Total Time Total Time Spent Total Time Spent (In Minutes): 37 minutes Discharge Plan Discharge Items Patient Disposition: Home - Self-Care Reason For Visit: CHEST PAIN Discharge Diagnosis: Chest Pain Activity: Resume your previous activity Exercise/Sports: Gradually increase as tolerated Non-emergency contact: Primary Care Provider Call non-emergency contact if: you have any medication questions, your symptoms worsen, your pain is concerning for you and you have a fever Follow-up/Referrals: Taye Alcantar MD [Outside Practitioners] - (Date & Time 06/07/2021 3:20 PM Provider Taye Alcantar MD Department Family Practice [facility] ) Diet: Heart Healthy Addtl Attending Provider Instructions: Follow-up with your primary care physician Dr. Alcantar on 06/07/2021 3:20 PM Pending Studies at Discharge: No Stand-Alone Forms: [facility] [employer], Smoking Cessation Medications and DC Order Prescriptions: Continued lisinopril 10 mg tablet 10 mg PO DAILY RF: 0 Claritin 10 mg PO DAILY RF: 0 Discharge Orders: Discharge Order (Routine); Ordered 06/03/21 Ordered By: Cliff Bueno/Other Patient Handouts: What Is Angina? Admission Data Admit Date/Time: 06/02/21 08:29 Attending Provider: Cliff Hope Admit Provider: Cliff Hope Primary Care Provider: PCP,NO Other Providers: Cliff Hope ; Felipe Dougherty Other Interventions: Discharge Summary Assessment (RN) Last Done: 06/03/21 15:35
== END 2021-06-03 15:46 | disposition home or self-care (01) ==
LOC: ED 05:57 → EDINP 05:57 → 2S 08:30